=== PATIENT | male | born 2000 | race Caucasian/White ===

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

== ENCOUNTER 2024-10-28 07:40 | Emergency (ER) | payer BC ==
[~2024-10-28] VITALS: Ht 172.7 cm; Wt 68.2 kg
[2024-10-28 07:41] VITALS: TEMP 98
[2024-10-28 08:10] LABS: PLATELET COUNT (AUTO) 243 K/uL (150-450); RED BLOOD CELL COUNT(AUTO) 4.23 MIL/uL (4.50-5.90); RED CELL DISTRIBUTION WIDTH 12.7 % (11.5-14.5); WHITE BLOOD COUNT (AUTO) 8.9 K/uL (4.5-11.0)
[2024-10-28 08:19] LABS: CALCIUM, TOTAL 8.4 mg/dL (8.8-10.5); CREATININE 0.94 mg/dL (0.60-1.30); GLOMERULAR FILTR. RATE CALC > 60 mL/min (>60); GLUCOSE,RANDOM 84 mg/dL (70-110); SODIUM SERUM 133 mmol/L (136-145); UREA NITROGEN, BLOOD 19 mg/dL (7-18)
[2024-10-28 08:28] LABS: ASPARTATE AMINOTRANSFERASE 256 U/L (15-37); TOTAL PROTEIN, SERUM 6.6 g/dL (6.4-8.2)
[2024-10-28] MEDS ORDERED: ACET-66 PO (08:34)
[2024-10-28] MEDS ORDERED: IBUP-1554 PO (08:34)
[2024-10-28] MEDS ORDERED: METH-659 PO (08:34)
[2024-10-28 09:00] VITALS: BP 114/77; PULSE 59; RESP 17; O2SAT 100
[2024-10-28 09:07] LABS: ALCOHOL, BLOOD (SERUM) < 3 mg/dL (0-10)
== END 2024-10-28 09:44 | disposition home or self-care (01) ==
LOC: EMS 07:40
DX: S39.012A Strain of muscle, fascia and tendon of lower back, initial encounter (principal); T50.901A Poisoning by unspecified drugs, medicaments and biological substances, accidental (unintentional), initial encounter; Z79.899 Other long term (current) drug therapy; X58.XXXA Exposure to other specified factors, initial encounter; Y93.89 Activity, other specified; Y92.89 Other specified places as the place of occurrence of the external cause; Y99.8 Other external cause status
CPT/HCPCS: 99284; 80048; 80076; 85025; 36415; 93005; G0480; G0481